=== PATIENT | female | born 1975 | race Caucasian/White ===

== ENCOUNTER 2023-12-27 15:00 | Outpatient (RCR) | payer BC, SELFPAY | END 2024-04-25 23:59 | disposition home or self-care (01) | PROVIDERS: PCP Family Medicine; Visit Provider Family Medicine | DX: N39.46 Mixed incontinence (principal); R15.2 Fecal urgency; R10.2 Pelvic and perineal pain; M99.05 Segmental and somatic dysfunction of pelvic region; Z51.89 Encounter for other specified aftercare | CPT/HCPCS: 97112; 97140; 97161; 97530; 97535 ==